=== PATIENT | male | born 1945 | race Caucasian/White ===

== ENCOUNTER 2019-02-25 11:44 | Emergency (ER) | payer MEDICARE, OTHER ==
[2019-02-25] MEDS ORDERED: Albuterol/Ipratropium 3.0-0.5 MG/3 ML Neb Soln ONE (11:49)
[2019-02-25] MEDS ORDERED: Albuterol/Ipratropium 3.0-0.5 MG/3 ML Neb Soln NEB ONE (11:55)
--- NOTE | 2019-02-25 12:06 | EDM.PDOC ---
ED HPI GENERAL MEDICAL PROBLEM - General Chief Complaint: Respiratory Problem Stated Complaint: SOB Time Seen by Provider: 02/25/19 11:45 Source of Information: Reports: Patient History Limitations: Reports: No Limitations - History of Present Illness INITIAL COMMENTS - FREE TEXT/NARRATIVE: Patient presented to the ED because of dyspnea. He was recently diagnosed with pneumonia and is taking doxycycline but still he is cough which is non- productive and with associated dyspnea. there is no fever or chills. - Related Data Allergies Allergy/AdvReac Type Severity Reaction Status Date / Time cefazolin Allergy Rash Verified 07/22/13 13:57 ciprofloxacin Allergy Nausea and Verified 07/22/13 13:57 Vomiting Home Meds: Home Meds Hydrochlorothiazide/Lisinopril [Lisinopril/HCTZ 20-12.5 MG] 20 mg PO DAILY 07/22 [History] Lutein/Minerals/Vit A,C & E [Ocuvite] 1 tab PO DAILY 07/22/13 [History] Aspirin 325 mg PO DAILY 03/04/16 [History] Metoprolol Tartrate [Lopressor] 25 mg PO BID 03/04/16 [History] Vitamin B Comp W-C/FA/Zinc [Morenita B Strong with C & Zinc Tb] 1 each PO DAILY [History] Zolpidem Tartrate [Ambien] 10 mg PO BEDTIME PRN 03/04/16 [History] atorvaSTATin [Lipitor] 20 mg PO DAILY 03/04/16 [History] Aspirin [Ecotrin EC] 81 mg PO DAILY 03/05/16 [History] Albuterol Sulfate [Albuterol Sulfate Hfa] 8.5 gm IH QID PRN #1 hfa.aer.ad [Rx] predniSONE [Prednisone] 40 mg PO DAILY #6 tablet 02/25/19 [Rx] Past Medical History HEENT History: Reports: Glaucoma Other HEENT History: Wears glasses, astigmatism, myopia, presbyopia, VITREOUS DEGENERATION,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, CATARACT, NUCLEAR SCLEROTIC, BOTH EYES Cardiovascular History: Reports: Hypertension Other Cardiovascular History: GENERALIZED ATHEROSCLEROSIS,STEMI INVOLVING RIGHT CORONARY ARTERY, CAD Gastrointestinal History: Reports: Helicobacter Pylori 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 Denies: Sputum Cardiovascular: Reports: No Symptoms Endocrine: Reports: No Symptoms GI/Abdominal: Reports: No Symptoms : Reports: No Symptoms Musculoskeletal: Reports: No Symptoms Skin: Reports: No Symptoms Neurological: Reports: No Symptoms Psychiatric: Reports: No Symptoms ED EXAM, GENERAL - Physical Exam Exam: See Below Exam Limited By: No Limitations General Appearance: Alert, No Apparent Distress Eye Exam: Bilateral Eye: PERRL Ears: Normal External Exam, Normal Canal, Normal TMs Nose: Normal Inspection, Normal Mucosa, No Blood Throat/Mouth: Normal Inspection, Normal Lips, Normal Teeth, Normal Gums, Normal Oropharynx, Normal Voice, No Airway Compromise Head: Atraumatic, Normocephalic Neck: Normal Inspection, Supple, Non-Tender, Full Range of Motion Respiratory/Chest: No Respiratory Distress, Lungs Clear, Normal Breath Sounds, No Accessory Muscle Use, Chest Non-Tender, Rhonchi, Wheezing Cardiovascular: Normal Peripheral Pulses, Regular Rate, Rhythm, No Edema, No Gallop, No JVD, No Murmur, No Rub GI/Abdominal: Normal Bowel Sounds, Soft, No Organomegaly, No Distention, No Abnormal Bruit, No Mass Back Exam: Normal Inspection, Full Range of Motion Course - Vital Signs Text/Narrative:: There's is residual bronchospasm from his pneumonia and responded well with duoneb and prednisone 40 mg po x1. He was also noted to have hypertensive crisis with BP 202/109,although he denies any chest,dizziness. He was given norvasc 10 mg and his BP did go down to 179/89 upon discharge. Last Recorded V/S: Last Vital Signs Temp Pulse Resp BP 202/85 H 02/25/19 12:18 Pulse Ox - Orders/Labs/Meds Orders: Active Orders 24 hr Category Date Time Status RT Aerosol Therapy [RC] ASDIRECTED Care 02/25/19 11:55 Active Meds: Medications Discontinued Medications Generic Name Dose Route Start Last Admin Trade Name Freq PRN Reason Stop Dose Admin Albuterol/Ipratropium Confirm 02/25/19 11:49 02/25/19 11:57 Duoneb 3.0-0.5 Mg/3 Ml Administered 02/25/19 11:50 Not Given Dose 3 ml .ROUTE .STK-MED ONE Albuterol/Ipratropium 3 ml 02/25/19 11:55 02/25/19 11:55 Duoneb 3.0-0.5 Mg/3 Ml NEB 02/25/19 11:56 3 ml ONETIME ONE Administration Amlodipine Besylate 10 mg 02/25/19 12:14 02/25/19 12:18 Norvasc PO 02/25/19 12:15 10 mg ONETIME ONE Administration Departure - Departure Time of Disposition: 12:00 Disposition: Refer to Observation Condition: Good Clinical Impression: Pneumonia - Discharge Information Prescriptions: Albuterol Sulfate [Albuterol Sulfate Hfa] 8.5 gm IH QID PRN #1 hfa.aer.ad PRN Reason: Dyspnea predniSONE [Prednisone] 40 mg PO DAILY #6 tablet Instructions: Hypertension, [id number], Community-Acquired Pneumonia, Adult, [id number] Referrals: Levon Gao MD [Primary Care Provider] - Forms: ED Department Discharge Additional Instructions: increase oral fluids continue your antibiotic albuterol MDI 2 puffs every 4-6 hours as needed for shortness of breath prednisone 40mg daily foe 3 days starting today follow up with your doctor regarding your elevated BP, he might add a different medication Sepsis Event Note - Focused Exam Vital Signs: Vital Signs BP 02/25/19 12:18 202/85 H Date Exam was Performed: 02/25/19 Time Exam was Performed: 14:18 - My Orders Last 24 Hours: My Active Orders 02/25/19 11:55 RT Aerosol Therapy [RC] ASDIRECTED - Assessment/Plan Last 24 Hours: My Active Orders 02/25/19 11:55 RT Aerosol Therapy [RC] ASDIRECTED
[2019-02-25] MEDS ORDERED: amLODIPine 10 MG Tab PO ONE (12:14)
[2019-02-25 15:24] VITALS: PULSE 72
[2019-02-25 15:25] VITALS: BP 179/83
== END 2019-02-25 13:20 | disposition admitted as inpatient to this hospital (09) ==
LOC: FB.ED 11:44
DX: J18.9 Pneumonia, unspecified organism (principal); I10 Essential (primary) hypertension; I25.10 Atherosclerotic heart disease of native coronary artery without angina pectoris; Z88.1 Allergy status to other antibiotic agents; Z79.82 Long term (current) use of aspirin; Z79.899 Other long term (current) drug therapy
CPT/HCPCS: 94640; 99284; A9270; J7620-GY

== ENCOUNTER 2019-03-01 01:41 | Emergency (ER) | payer MEDICARE, OTHER ==
[2019-03-01] MEDS: Sodium Chloride 0.9% 10 ML Syringe FLUSH PRN ×2 (02:00→03:32)
[2019-03-01] MEDS ORDERED: Albuterol/Ipratropium 3.0-0.5 MG/3 ML Neb Soln NEB ONE (02:01)
--- NOTE | 2019-03-01 03:19 | EDM.PDOC ---
ED HPI GENERAL MEDICAL PROBLEM - General Chief Complaint: Respiratory Problem Stated Complaint: SOB Time Seen by Provider: 03/01/19 02:10 Source of Information: Reports: Patient History Limitations: Reports: No Limitations - History of Present Illness INITIAL COMMENTS - FREE TEXT/NARRATIVE: pt c/o cough and constant urge to clear his throat , at times its hard to breath , tells me it started 3 weeks ago, was prescribed zpack but this caused him rash , then was prescribed doxycycline and prednisone, felt he got better for few days but sx came back, pt denies fever chills, chest pain GERD sx or any other associated sx or concerns. he has a long Hx of smoking and quit about 7 years ago. also Hx of chronic rhinitis. - Related Data Allergies Allergy/AdvReac Type Severity Reaction Status Date / Time azithromycin Allergy Other Verified 03/01/19 01:58 cefazolin Allergy Rash Verified 03/01/19 01:58 ciprofloxacin Allergy Nausea and Verified 03/01/19 01:58 Vomiting Home Meds: Home Meds Aspirin 325 mg PO DAILY 03/04/16 [History] Metoprolol Tartrate [Lopressor] 50 mg PO BID 03/04/16 [History] atorvaSTATin [Lipitor] 20 mg PO DAILY 03/04/16 [History] Albuterol Sulfate [Albuterol Sulfate Hfa] 8.5 gm IH QID PRN #1 hfa.aer.ad [Rx] lisinopriL [Lisinopril] 20 mg PO DAILY 02/25/19 [History] Albuterol Sulfate [Albuterol Sulfate Hfa] 2 puff ASDIRECTED PRN 03/01/19 [ History] Doxycycline [Doxycycline Hyclate] 100 mg PO BID 03/01/19 [History] Past Medical History HEENT History: Reports: Glaucoma Other HEENT History: Wears glasses, astigmatism, myopia, presbyopia, VITREOUS DEGENERATION,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 Gastrointestinal History: Reports: Helicobacter Pylori Genitourinary History: Reports: Renal Calculus Other Genitourinary History: Bladder cancer. Kidney stones with lithotripsy. 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 Malignant neoplasm of bladder. Dysuria. 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 Oncologic Surgical History: Reports: Other (See Below) Other Oncologic Surgeries/Procedures: Malignant neoplasm of ureter. Malignant neoplasm of bladder. Dysuria. Left kidney and ureter gone. Part of right ureter gone Social & Family History - Family History Family Medical History: Noncontributory - Tobacco Use Smoking Status *Q: Former Smoker Years of Tobacco use: 40 Used Tobacco, but Quit: Yes Month/Year Tobacco Last Used: 2012 - Caffeine Use Caffeine Use: Reports: Coffee - Recreational Drug Use Recreational Drug Use: No ED ROS GENERAL - Review of Systems Review Of Systems: See Below Constitutional: Reports: No Symptoms HEENT: Reports: No Symptoms Respiratory: Reports: Wheezing, Cough, Sputum Cardiovascular: Reports: No Symptoms GI/Abdominal: Reports: No Symptoms Musculoskeletal: Reports: No Symptoms Skin: Reports: No Symptoms ED EXAM, GENERAL - Physical Exam Exam: See Below Exam Limited By: No Limitations General Appearance: Alert, No Apparent Distress Nose: Normal Inspection Throat/Mouth: Normal Inspection, Normal Oropharynx, Normal Voice Head: Atraumatic. No: Sinus Tenderness Neck: Normal Inspection, Supple, Non-Tender Respiratory/Chest: No Respiratory Distress, Rhonchi, Wheezing Cardiovascular: Normal Peripheral Pulses GI/Abdominal: Normal Bowel Sounds, Soft, Non-Tender Back Exam: Normal Inspection Neurological: Alert, Oriented, CN II-XII Intact, No Motor/Sensory Deficits Skin Exam: Warm, Dry Course - Vital Signs Text/Narrative:: cxr looked clear , labs unremarkable no signs of CHF, pt has recurrent bronchitis. was prescribed Levaquin , given solumedrol here and rx on prednisone for 5 days. pt to use own inhaler if needed as directed. BP noted to be elevated here SBP in the 160s, and pt was advised to follow with his PCP in few days for re-check. Last Recorded V/S: Last Vital Signs Temp 36.4 C 03/01/19 01:41 Pulse 81 03/01/19 02:50 Resp 19 03/01/19 02:50 BP 135/75 03/01/19 02:50 Pulse Ox 97 03/01/19 02:50 - Orders/Labs/Meds Orders: Active Orders 24 hr Category Date Time Status EKG Documentation Completion [RC] STAT Care 03/01/19 01:59 Active RT Aerosol Therapy [RC] ASDIRECTED Care 03/01/19 02:02 Active Chest 2V [CR] Stat Exams 03/01/19 02:00 Taken Sodium Chloride 0.9% [Saline Flush] Med 03/01/19 02:28 Active 10 ml FLUSH ASDIRECTED PRN Peripheral IV Insertion Adult [OM.PC] Routine Oth 03/01/19 02:28 Ordered Medication Orders Sodium Chloride (Saline Flush) 10 ml FLUSH ASDIRECTED PRN PRN Reason: Keep Vein Open Last Admin: 03/01/19 02:00 Dose: 10 ml Labs: Laboratory Tests 03/01/19 03/01/19 03/01/19 Range/Units 01:50 01:50 01:50 WBC 16.1 H (4.5-12.0) X10-3/uL RBC 4.94 (4.30-5.75) x10(6)uL Hgb 16.6 (13.5-17.8) g/dL Hct 45.8 (30.0-51.3) % MCV 92.8 (80-96) fL MCH 33.6 (27.7-33.6) pg MCHC 36.2 H (32.2-35.4) g/dL RDW 13.1 (11.5-15.5) % Plt Count 190 (125-369) X10(3)uL MPV 8.1 (7.4-10.4) fL Add Manual Diff Yes Neutrophils % (Manual) 87 H (46-82) % Band Neutrophils % 1 (0-6) % Lymphocytes % (Manual) 7 L (13-37) % Monocytes % (Manual) 5 (4-12) % Sodium 139 (135-145) mmol/L Potassium 4.3 (3.5-5.3) mmol/L Chloride 103 (100-110) mmol/L Carbon Dioxide 23 (21-32) mmol/L BUN 23 H (7-18) mg/dL Creatinine 1.3 (0.70-1.30) mg/dL Est Cr Clr Drug Dosing 57.21 mL/min Estimated GFR (MDRD) 54 L (>60) BUN/Creatinine Ratio 17.7 (9-20) Glucose 126 H (80-116) mg/dL Calcium 9.0 (8.6-10.2) mg/dL Total Bilirubin 0.8 (0.1-1.3) mg/dL AST 27 H (5-25) IU/L ALT 52 H (12-36) U/L Alkaline Phosphatase 75 (56-112) IU/L Troponin I < 0.017 L (<0.017-0.056) ng/mL NT-Pro-B Natriuret Pep 109 (<=125) pg/mL Total Protein 7.4 (6.0-8.0) g/dL Albumin 4.0 (3.2-4.6) g/dL Globulin 3.4 g/dL Albumin/Globulin Ratio 1.2 Meds: Medications Generic Name Dose Route Start Last Admin Trade Name Freq PRN Reason Stop Dose Admin Sodium Chloride 10 ml 03/01/19 02:28 03/01/19 02:00 Saline Flush FLUSH 10 ml ASDIRECTED PRN Administration Keep Vein Open Discontinued Medications Generic Name Dose Route Start Last Admin Trade Name Freq PRN Reason Stop Dose Admin Albuterol/Ipratropium 3 ml 03/01/19 02:01 03/01/19 02:25 Duoneb 3.0-0.5 Mg/3 Ml NEB 03/01/19 02:02 3 ml ONETIME ONE Administration Departure - Departure Time of Disposition: 03:22 Disposition: Home, Self-Care 01 Clinical Impression: Acute bronchitis - Discharge Information Referrals: PCP,None [Primary Care Provider] - Sepsis Event Note - Evaluation Sepsis Screening Result: Possible Sepsis Risk - Focused Exam Vital Signs: Vital Signs Temp Pulse Resp BP Pulse Ox 03/01/19 02:50 81 19 135/75 97 03/01/19 02:45 80 19 150/72 H 93 L 03/01/19 02:15 83 20 165/82 H 94 L 03/01/19 02:00 84 18 166/82 H 93 L 03/01/19 01:45 84 21 H 156/85 H 94 L 03/01/19 01:41 36.4 C 94 24 H 190/80 H 95 Date Exam was Performed: 03/01/19 Time Exam was Performed: 03:14 - My Orders Last 24 Hours: My Active Orders 03/01/19 01:59 EKG Documentation Completion [RC] STAT 03/01/19 02:00 Chest 2V [CR] Stat 03/01/19 02:02 RT Aerosol Therapy [RC] ASDIRECTED 03/01/19 02:28 Sodium Chloride 0.9% [Saline Flush] 10 ml FLUSH ASDIRECTED PRN Peripheral IV Insertion Adult [OM.PC] Routine - Assessment/Plan Last 24 Hours: My Active Orders 03/01/19 01:59 EKG Documentation Completion [RC] STAT 03/01/19 02:00 Chest 2V [CR] Stat 03/01/19 02:02 RT Aerosol Therapy [RC] ASDIRECTED 03/01/19 02:28 Sodium Chloride 0.9% [Saline Flush] 10 ml FLUSH ASDIRECTED PRN Peripheral IV Insertion Adult [OM.PC] Routine
[2019-03-01] MEDS ORDERED: methylPREDNISolone Sodium Succinate 125 MG/2 ML SDV IM ONE (03:22)
[2019-03-01] MEDS ORDERED: Levofloxacin 500 MG Tab PO ONE (03:29)
[2019-03-01] MEDS ORDERED: methylPREDNISolone Sodium Succinate 125 MG/2 ML SDV IVPUSH ONE (03:48)
[2019-03-01 04:39] VITALS: BP 146/70; PULSE 78
--- NOTE | 2019-03-01 10:57 | CR ---
INDICATION: Short of breath. Smoker x40 years. Quit 7 years prior. Two packs per day. CHEST, 2 VIEWS: Two PA views and two lateral views of the chest were obtained 03/01/19 and compared with 12/26/17 CT of the chest, again revealing a mild dextroconvex scoliosis of the lower middle thoracic spine with [id number] hypertrophic degenerative changes in that area. The heart appeared normal in size and shape. Post median sternotomy changes is noted as previously. Pulmonary markings overall appear similar to the previous study without a consolidating pneumonia or effusion identified. Overlying EKG leads are noted. Slightly heavy markings are again noted at the right lower lung field - right lung base, likely fibrotic in nature, making it difficult to exclude minimal patchy bronchopneumonia. IMPRESSION: No definite acute process but difficult to exclude minimal patchy bronchopneumonia at the right lower lung field - lung base. MTDD
== END 2019-03-01 03:58 | disposition home or self-care (01) ==
LOC: FB.ED 01:41
DX: J20.9 Acute bronchitis, unspecified (principal); I10 Essential (primary) hypertension; I25.10 Atherosclerotic heart disease of native coronary artery without angina pectoris; Z95.1 Presence of aortocoronary bypass graft; Z79.899 Other long term (current) drug therapy; Z88.1 Allergy status to other antibiotic agents; Z79.82 Long term (current) use of aspirin; Z87.891 Personal history of nicotine dependence
CPT/HCPCS: 36415; 71046; 80053; 83880; 84484; 85025; 87804; 87804-59; 93005; 94640; 96374; 99284; 99285-25; A9270-GY; J2930; J7620-GY

== ENCOUNTER 2020-07-29 19:06 | Emergency (ER) | payer MEDICARE, OTHER ==
[2020-07-29] MEDS ORDERED: Sodium Chloride 0.9% 10 ML Syringe FLUSH PRN (19:16)
--- NOTE | 2020-07-29 19:16 | EDM.PDOC ---
ED HPI GENERAL MEDICAL PROBLEM - General Stated Complaint: CHEST PAIN Time Seen by Provider: 07/29/20 19:10 Source of Information: Reports: Patient History Limitations: Reports: No Limitations - History of Present Illness INITIAL COMMENTS - FREE TEXT/NARRATIVE: 75-year-old male who reports that last night as he was getting ready for bed, he put his drops in both of his eyes for his glaucoma and shortly after this while resting he developed some pressure in the center of his chest lasted for "about a minute" and then went away. He also felt somewhat short of breath. He reports that when he set up the pain and the shortness of breath seemed to go away but he took his blood pressure and it was 185/101 he was feeling somewhat lightheaded at the time and seemed to get better over the next 2 hours and his blood pressures sequentially dropped and then was back to what he normally runs which is 128/74. He was fine following this for the rest of the evening and slept well for him and was fine all through the day today (his daughter reports that he was at her house at 3 PM and he was normal to her) until approximately 6 PM when he began to feel cold all over and he thought that the air conditioner was just up to much and he adjusted down but he was still feeling cold all over and was somewhat shaky all over. He was not sweating at the time. He had no chest pain at this time he had no shortness of breath at this time he did take his blood pressure and it was 99 systolic and he took it several more times after this and it just seemed to arise further. This, plus him feeling generally unwell all over with the feeling cold and shaky and malaise, caused him to call the ambulance and he presents to the emergency department via ambulance. He continues to state that he has no chest pain or shortness of breath and in fact he tells me he has no pain anywhere. He would rated pain as a 0/10. The shakiness and feeling cold has also resolved. No nausea or vomiting. No dysuria or hematuria. No cough or sore throat. He has had chronic rhinitis and was recently told that he had sinusitis. This has been ongoing for about the past 5- 6 years and about 1 week ago he was placed on Flonase he has been using that. He also tells me that for the past week he has been having intermittent episodes of discomfort in his abdomen "my gut is turning over" after he eats and this is usually in the evening. He somehow thinks it may be related to the Flonase that he is using as he did not use it yesterday or today and he did not have any of those symptoms today with his abdomen. He also tells me that he has been feeling course for the past he weeks. He also reports that he has a history of reflux and was on reflux medication but stopped it 2-3 years ago because he didn't feel that he needed any more. Now, he states he feels pretty much back to normal. He does not feel any lightheadedness or weakness or dizziness area and there is no pain. There is no shortness of breath. There are no other associated signs or symptoms. There are no other modifying factors. Onset: Other (Last night as above) Duration: Intermittent, Other (Resolving/resolved now.) Location: Reports: Other (No pain today and only transient discomfort in his chest last night.) Quality: Reports: Pressure (Chest for all of 1 minute.) Improves with: Reports: None Worsens with: Reports: None Context: Reports: Other (As above) Associated Symptoms: Reports: No Other Symptoms (Except as above.) Treatments FOOD EDITOR: Reports: Other (see below) (Nothing.) - Related Data Allergies Allergy/AdvReac Type Severity Reaction Status Date / Time azithromycin Allergy Other Verified 03/01/19 01:58 cefazolin Allergy Rash Verified 03/01/19 01:58 ciprofloxacin Allergy Nausea and Verified 03/01/19 01:58 Vomiting Home Meds: Home Meds Aspirin 325 mg PO DAILY 03/04/16 [History] Metoprolol Tartrate [Lopressor] 50 mg PO BID 03/04/16 [History] atorvaSTATin [Lipitor] 20 mg PO DAILY 03/04/16 [History] Albuterol Sulfate [Albuterol Sulfate Hfa] 8.5 gm IH QID PRN #1 [id number] 02/25/19 [Rx] lisinopriL [Lisinopril] 20 mg PO DAILY 02/25/19 [History] Albuterol Sulfate [Albuterol Sulfate Hfa] 2 puff ASDIRECTED PRN 03/01/19 [History] Fluticasone Propionate [Flonase] 1 each NASBOTH BID 07/29/20 [History] Ipratropium [Atrovent 0.06% Nasal [place]] 1 each NASBOTH BID 07/29/20 [History] Latanoprost/Pf [Latanoprost 0.005% Eye Drop] 2 drop EYEBOTH BEDTIME 07/29/20 [History] Mirtazapine 15 mg PO BEDTIME 07/29/20 [History] Zolpidem Tartrate [Ambien] 5 mg PO BEDTIME 07/29/20 [History] Past Medical History HEENT History: Reports: Glaucoma Other HEENT History: Wears glasses, astigmatism, myopia, presbyopia, VITREOUS DEGENERATION,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 Gastrointestinal History: Reports: GERD, Helicobacter Pylori Genitourinary History: Reports: Renal Calculus Other Genitourinary History: Bladder cancer. Kidney stones with lithotripsy. 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 Malignant neoplasm of bladder. Dysuria. 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 Oncologic Surgical History: Reports: Other (See Below) Other Oncologic Surgeries/Procedures: Malignant neoplasm of ureter. Malignant neoplasm of bladder. Dysuria. Left kidney and ureter gone. Part of right ureter gone Social & Family History - Tobacco Use Tobacco Use Status *Q: Unknown Ever Used Tobacco (Nonsmoker.) - Caffeine Use Caffeine Use: Reports: Coffee - Alcohol Use Alcohol Use History: No - Living Situation & Occupation Occupation: Retired ED ROS GENERAL - Review of Systems Review Of Systems: See Below Constitutional: Reports: Chills, Weakness HEENT: Reports: Other (Hoarse voice for the past few weeks.). Denies: Hearing Loss, Throat Pain Respiratory: Reports: Shortness of Breath (Transiently last night). Denies: Cough, Hemoptysis Cardiovascular: Reports: Chest Pain (Transiently last night. None since then.), Lightheadedness Endocrine: Reports: Fatigue. Denies: Polydypsia, Polyuria GI/Abdominal: Denies: Nausea, Vomiting : Denies: Dysuria, Hematuria Skin: Denies: Diaphoresis, Pruritis Neurological: Reports: Dizziness. Denies: Headache Hematologic/Lymphatic: Denies: Easy Bleeding, Easy Bruising ED EXAM, GENERAL - Physical Exam Exam: See Below Exam Limited By: No Limitations General Appearance: Alert, WD/WN, No Apparent Distress Eye Exam: Bilateral Eye: EOMI, Normal Inspection (Sclera are anicteric) Ears: Normal External Exam, Hearing Grossly Normal Ear Exam: Bilateral Ear: Auricle Normal Nose: Normal Inspection, Normal Mucosa, No Blood Throat/Mouth: Normal Lips, Normal Voice, No Airway Compromise Head: Atraumatic, Normocephalic Neck: Normal Inspection, Supple, Non-Tender, Full Range of Motion Respiratory/Chest: No Respiratory Distress, Lungs Clear, Normal Breath Sounds, No Accessory Muscle Use, Chest Non-Tender Cardiovascular: Normal Peripheral Pulses, Regular Rate, Rhythm, No Gallop, No Murmur Peripheral Pulses: 0: Radial (L) (Patient had this harvested for his CABG.), 2+: Radial (R), Dorsalis Pedis (L), Dorsalis Pedis (R) GI/Abdominal: Normal Bowel Sounds, Soft, Non-Tender, No Mass Back Exam: Normal Inspection, Full Range of Motion Extremities: Normal Inspection, Normal Range of Motion, Non-Tender, No Pedal Edema, Normal Capillary Refill Neurological: Alert, Oriented, CN II-XII Intact, Normal Cognition, No Motor/Sensory Deficits Psychiatric: Normal Affect Skin Exam: Warm, Dry, Intact, Normal Color, No Rash #1 Interpretation EKG Date: 07/29/20 Time: 19:06 Rhythm: NSR Rate (Beats/Min): 87 [place]: Normal P-Wave: Enlarged (Left atrial enlargement) QRS: RBBB ST-T: Normal QT: Prolonged (Prolonged QTc.) Comparison: No Change (No change from an EKG performed on 03/01/2019.) #2 Interpretation EKG Date: 07/29/20 Time: 22:04 Rhythm: NSR Rate (Beats/Min): 61 [place]: Normal P-Wave: Enlarged (Left atrial enlargement) QRS: RBBB ST-T: Normal QT: Normal Comparison: No Change (No significant change from EKG performed at 7:06 PM today 07/29/2020) Course - Vital Signs Last Recorded V/S: Last Vital Signs Temp 37.6 C 07/29/20 19:31 Pulse 69 07/29/20 21:58 Resp 18 07/29/20 19:31 BP 200/82 H 07/29/20 21:58 Pulse Ox 98 07/29/20 19:31 - Orders/Labs/Meds Orders: Active Orders 24 hr Category Date Time Status Chest 1V Frontal [CR] Stat Exams 07/29/20 19:16 Taken Peripheral IV Insertion Adult [OM.PC] Routine Oth 07/29/20 19:16 Ordered EKG 12 Lead [EK] Routine Ther 07/29/20 19:16 Ordered EKG 12 Lead [EK] Routine Ther 07/29/20 22:15 Ordered Labs: Laboratory Tests 07/29/20 07/29/20 07/29/20 Range/Units 19:45 19:45 19:45 WBC 8.5 (3.2-10.1) x10-3/uL RBC 5.00 (3.90-5.90) x10(6)uL Hgb 15.3 (12.9-17.7) g/dL Hct 43.4 (38.3-50.1) % MCV 86.8 (80.8-98.7) fL MCH 30.5 (27.0-33.3) pg MCHC 35.2 (28.7-35.3) g/dL RDW 14.0 (12.4-15.0) % Plt Count 156 (117-477) x10(3)uL MPV 7.6 (6.7-11.0) fL Neut % (Auto) 76.6 H (40.3-71.8) % Lymph % (Auto) 14.6 L (15.8-45.3) % [place] % (Auto) 7.5 (5.5-15.2) % Eos % (Auto) 0.8 (0.1-6.8) % Baso % (Auto) 0.5 (0.3-3.8) % Neut # (Auto) 6.5 (1.7-6.9) x10-3/uL Lymph # (Auto) 1.2 (0.5-4.5) x10-3/uL Barren # (Auto) 0.6 (0.0-1.2) x10-3/uL Eos # (Auto) 0.1 (0.0-0.6) x10-3/uL Baso # (Auto) 0.0 (0.0-0.3) x10-3/uL D-Dimer, Quantitative (0.0-0.59) mg/LFEU Sodium 141 (135-145) mmol/L Potassium 3.9 (3.5-5.3) mmol/L Chloride 105 (100-110) mmol/L Carbon Dioxide 26 (21-32) mmol/L BUN 17 (7-18) mg/dL Creatinine 1.5 H (0.70-1.30) mg/dL Est Cr Clr Drug Dosing TNP Estimated GFR (MDRD) 46 L (>60) BUN/Creatinine Ratio 11.3 (9-20) Glucose 116 (80-116) mg/dL Calcium 7.9 L (8.6-10.2) mg/dL Magnesium 1.8 (1.8-2.5) mg/dL Total Bilirubin 0.7 (0.1-1.3) mg/dL AST 30 H D (5-25) IU/L ALT 65 H D (12-36) U/L Alkaline Phosphatase 71 (56-112) IU/L Troponin I 8.5 (4.0-60.3) pg/mL Total Protein 6.8 (6.0-8.0) g/dL Albumin 3.8 (3.2-4.6) g/dL Globulin 3.0 g/dL Albumin/Globulin Ratio 1.3 Urine Color (YELLOW) Urine Appearance (CLEAR) Urine pH (5.0-6.5) Ur Specific [place] (1.010-1.025) Urine Protein (NEGATIVE) mg/dL Urine Glucose (UA) (NORMAL) mg/dL Urine Ketones (NEGATIVE) mg/dL Urine Occult Blood (NEGATIVE) Urine Nitrite (NEGATIVE) Urine Bilirubin (NEGATIVE) Urine Urobilinogen (NEGATIVE) mg/dL Ur Leukocyte Esterase (NEGATIVE) Urine RBC (0-5) Urine WBC (0-5) Ur Squamous Epith Cells (NS,R,O) Urine Bacteria (NS) 07/29/20 07/29/20 07/29/20 Range/Units 19:45 22:25 22:44 WBC (3.2-10.1) x10-3/uL RBC (3.90-5.90) x10(6)uL Hgb (12.9-17.7) g/dL Hct (38.3-50.1) % MCV (80.8-98.7) fL MCH (27.0-33.3) pg MCHC (28.7-35.3) g/dL RDW (12.4-15.0) % Plt Count (117-477) x10(3)uL MPV (6.7-11.0) fL Neut % (Auto) (40.3-71.8) % Lymph % (Auto) (15.8-45.3) % [place] % (Auto) (5.5-15.2) % Eos % (Auto) (0.1-6.8) % Baso % (Auto) (0.3-3.8) % Neut # (Auto) (1.7-6.9) x10-3/uL Lymph # (Auto) (0.5-4.5) x10-3/uL [place] # (Auto) (0.0-1.2) x10-3/uL Eos # (Auto) (0.0-0.6) x10-3/uL Baso # (Auto) (0.0-0.3) x10-3/uL D-Dimer, Quantitative 0.48 (0.0-0.59) mg/LFEU Sodium (135-145) mmol/L Potassium (3.5-5.3) mmol/L Chloride (100-110) mmol/L Carbon Dioxide (21-32) mmol/L BUN (7-18) mg/dL Creatinine (0.70-1.30) mg/dL Est Cr Clr Drug Dosing Estimated GFR (MDRD) (>60) BUN/Creatinine Ratio (9-20) Glucose (80-116) mg/dL Calcium (8.6-10.2) mg/dL Magnesium (1.8-2.5) mg/dL Total Bilirubin (0.1-1.3) mg/dL AST (5-25) IU/L ALT (12-36) U/L Alkaline Phosphatase (56-112) IU/L Troponin I 16.6 (4.0-60.3) pg/mL Total Protein (6.0-8.0) g/dL Albumin (3.2-4.6) g/dL Globulin g/dL Albumin/Globulin Ratio Urine Color Yellow (YELLOW) Urine Appearance Clear (CLEAR) Urine pH 5.0 (5.0-6.5) Ur Specific [place] 1.010 (1.010-1.025) Urine Protein Negative (NEGATIVE) mg/dL Urine Glucose (UA) Normal (NORMAL) mg/dL Urine Ketones Negative (NEGATIVE) mg/dL Urine Occult Blood Negative (NEGATIVE) Urine Nitrite Negative (NEGATIVE) Urine Bilirubin Negative (NEGATIVE) Urine Urobilinogen Normal (NEGATIVE) mg/dL Ur Leukocyte Esterase Negative (NEGATIVE) Urine RBC 0-5 (0-5) Urine WBC 0-5 (0-5) Ur Squamous Epith Cells Rare (NS,R,O) Urine Bacteria Few H (NS) Meds: Medications Discontinued Medications Generic Name Dose Route Start Last Admin Trade Name Freq PRN Reason Stop Dose Admin Metoprolol Tartrate 50 mg 07/29/20 21:41 07/29/20 21:58 Metoprolol Tartrate 50 Mg Tab PO 07/29/20 21:42 50 mg ONETIME ONE Administration Sodium Chloride 10 ml 07/29/20 19:16 Sodium Chloride 0.9% 10 Ml Syringe FLUSH ASDIRECTED PRN Keep Vein Open - Radiology Interpretation Free Text/Narrative:: Portable chest x-ray shows no acute disease. - Re-Assessments/Exams Free Text/Narrative Re-Assessment/Exam: 07/29/20 21:30: All of the patient's blood tests were reassuringly normal except for some mildly elevated LFTs.. His troponin and his d-dimer were both normal. He has yet to provide us with a urine. His EKG showed no change from a previous EKG and specifically there was no acute current of injury or ischemia present. His chest x-ray was normal. The patient's blood pressure is still somewhat elevated at the 180-190 systolic range. He has not had his nighttime dose of metoprolol. Will give him his nighttime dose of metoprolol now. He feels pretty much back to normal at this point. I have discussed various options with the patient. One option would be to repeat his troponin in about 45 minutes to an hour and also repeat his EKG and if these are normal, it is unlikely that he has had any heart-related problem or heart attack. He would be able to go home at this point. Another option, would be to be admitted to the hospital and do serial cardiac enzymes and watch him overnight on the monitor technician. If we were to do this, I would have to transfer the patient to another facility because I have been told that we do not have any further beds available for admission at [facility] [place] at this time. Patient would like to think about this for now. We will continue to try to get a urine specimen and I will repeat his troponin and his EKG at 10:15 PM. 07/29/20 23:05: The patient's repeat blood pressure was 163/84, so improved. The patient's repeat EKG is unchanged from previous. The repeat troponin was still normal. The urinalysis was normal. I rediscussed the 2 options and the patient states that he would like to go home at this point and he will follow-up with his primary provider. With the mildly elevated LFTs, I think it is possible that he has some type of biliary problem. He certainly needs to follow-up with his primary provider about that as well. Precautions and reasons for return to the emergency department were discussed with the patient and with his family members while he was in the emergency department and were detailed in the patient's discharge instructions. Departure - Departure Time of Disposition: 23:15 Disposition: Home, Self-Care 01 Condition: Good (Improved) Clinical Impression: Hypertension, uncontrolled, Elevated LFTs, Lightheadedness Instructions: Hypertension, Adult, [id number] Referrals: PCP,None [Primary Care Provider] - Forms: ED Department Discharge Additional Instructions: Your blood tests were all reassuringly normal except for some mildly elevated liver associated test. Your heart enzyme test was normal both times it we checked it and your EKG was unchanged from previous both times that we checked that as well. I am unsure why you had the episode last night and again tonight your blood pressure being elevated. You do need to follow-up with Dr. Gao this coming week. You will need to have additional testing to check these elevated li rene function test. You may also need other tests to check your heart out more fully and to adjust your blood pressure medications. Back to the emergency department for chest pain, back/shoulder/neck pains, shortness of breath, weakness, severe headache or any other concerning signs or symptoms. Sepsis Event Note (ED) - Focused Exam Vital Signs: Vital Signs Temp Pulse Pulse Resp BP BP Pulse Ox 07/29/20 21:58 69 200/82 H 07/29/20 19:31 37.6 C 93 18 216/94 H 98 - My Orders Last 24 Hours: My Active Orders 07/29/20 19:16 Chest 1V Frontal [CR] Stat Peripheral IV Insertion Adult [OM.PC] Routine EKG 12 Lead [EK] Routine 07/29/20 22:15 EKG 12 Lead [EK] Routine - Assessment/Plan Last 24 Hours: My Active Orders 07/29/20 19:16 Chest 1V Frontal [CR] Stat Peripheral IV Insertion Adult [OM.PC] Routine EKG 12 Lead [EK] Routine 07/29/20 22:15 EKG 12 Lead [EK] Routine
[2020-07-29] MEDS ORDERED: Metoprolol Tartrate 50 MG Tab PO ONE (21:41)
[2020-07-29 21:59] VITALS: BP 200/82; PULSE 69
--- NOTE | 2020-07-31 10:56 | CR ---
INDICATION: Lightheaded, cold, slightly shaking, high blood pressure. CHEST ONE VIEW: Two AP portable upright views of the chest were obtained 07/29/20 and compared with 03/01/19. The heart did not appear enlarged with post median sternotomy change again seen. Overlying EKG leads are noted. No definite active infiltrate or effusion was identified with markings similar to the previous examination. IMPRESSION: No acute process. MTDD
== END 2020-07-29 23:25 | disposition home or self-care (01) ==
LOC: FB.ED 19:06
DX: R42 Dizziness and giddiness (principal); I10 Essential (primary) hypertension; R79.89 Other specified abnormal findings of blood chemistry; I25.10 Atherosclerotic heart disease of native coronary artery without angina pectoris; E78.00 Pure hypercholesterolemia, unspecified; I25.2 Old myocardial infarction; Z95.1 Presence of aortocoronary bypass graft; Z79.82 Long term (current) use of aspirin; Z79.899 Other long term (current) drug therapy; Z88.1 Allergy status to other antibiotic agents
CPT/HCPCS: 36415; 71045; 80053; 81001; 83735; 84484; 85025; 85379; 93005; 99284; A9270

== ENCOUNTER 2022-04-18 08:17 | Day surgery (SDC) | payer MEDICARE ==
[~2022-04-18 08:17] MED LIST: Lactated Ringers 1,000 ML IV SCH; Sodium Chloride 0.9% 10 ML Syringe FLUSH PRN
[2022-04-18] MEDS ORDERED: Propofol 200 MG/20 ML SDV IV ONE (08:18)
[2022-04-18] MEDS ORDERED: Lidocaine 2% 100 MG/5 ML Syringe IVPUSH ONE (08:18)
[2022-04-18] MEDS ORDERED: Glycopyrrolate 0.2 MG/ML 5 ML MDV IV ONE (08:18)
[2022-04-18 12:20] VITALS: BP 139/79; PULSE 56
== END 2022-04-18 12:07 | disposition home or self-care (01) ==
LOC: FB.SDS 08:17
PROVIDERS: ATTEND Surgery
DX: D12.0 Benign neoplasm of cecum (principal); I10 Essential (primary) hypertension; F41.9 Anxiety disorder, unspecified; I25.10 Atherosclerotic heart disease of native coronary artery without angina pectoris; K21.9 Gastro-esophageal reflux disease without esophagitis; H34.8192 Central retinal vein occlusion, unspecified eye, stable; N28.9 Disorder of kidney and ureter, unspecified; I25.2 Old myocardial infarction; Z79.899 Other long term (current) drug therapy; Z88.1 Allergy status to other antibiotic agents; Z88.6 Allergy status to analgesic agent; Z98.890 Other specified postprocedural states; Z95.1 Presence of aortocoronary bypass graft; Z87.891 Personal history of nicotine dependence
CPT/HCPCS: 00811; 88305; J2704; J3490

== ENCOUNTER 2022-11-26 07:29 | Day surgery (SDC) | payer MEDICARE ==
[2022-11-26] MEDS ORDERED: Sodium Chloride 0.9% 10 ML Syringe FLUSH PRN (07:30)
[2022-11-26] MEDS ORDERED: Midazolam 1 MG/ML 2 ML SDV IV ONE (07:30)
[2022-11-26] MEDS ORDERED: Lactated Ringers 1,000 ML IV PRN (07:30)
[2022-11-26] MEDS ORDERED: fentaNYL 100 MCG/2 ML SDV IV ONE (07:30)
[2022-11-26] MEDS ORDERED: acetaZOLAMIDE 500 MG Cap.ER PO ONE (09:30)
[2022-11-26 13:05] VITALS: BP 167/64; PULSE 60
== END 2022-11-26 10:15 | disposition home or self-care (01) ==
LOC: FB.SDS 07:29
PROVIDERS: ATTEND Ophthalmology
DX: H25.13 Age-related nuclear cataract, bilateral (principal); I10 Essential (primary) hypertension; F41.9 Anxiety disorder, unspecified; I25.10 Atherosclerotic heart disease of native coronary artery without angina pectoris; K21.9 Gastro-esophageal reflux disease without esophagitis; F17.210 Nicotine dependence, cigarettes, uncomplicated; Z95.1 Presence of aortocoronary bypass graft; Z79.899 Other long term (current) drug therapy; Z79.82 Long term (current) use of aspirin; Z88.1 Allergy status to other antibiotic agents; Z88.8 Allergy status to other drugs, medicaments and biological substances
CPT/HCPCS: 00142; 36415; 66984; 84132; A9270; J2250; J3010; J3490; J7120; V2632

== ENCOUNTER 2022-12-10 08:25 | Day surgery (SDC) | payer MEDICARE ==
[2022-12-10] MEDS ORDERED: fentaNYL 100 MCG/2 ML SDV IV ONE (08:26)
[2022-12-10] MEDS ORDERED: Midazolam 1 MG/ML 2 ML SDV IV ONE (08:26)
[2022-12-10] MEDS ORDERED: Sodium Chloride 0.9% 10 ML Syringe FLUSH PRN (08:30)
[2022-12-10] MEDS: Lactated Ringers 1,000 ML IV PRN (09:17)
[2022-12-10] MEDS: acetaZOLAMIDE 500 MG Cap.ER PO ONE (10:52)
[2022-12-10 10:54] VITALS: PULSE 56
[2022-12-10 10:59] VITALS: BP 131/73
== END 2022-12-10 11:11 | disposition home or self-care (01) ==
LOC: FB.SDS 08:25
PROVIDERS: ATTEND Ophthalmology
DX: H25.13 Age-related nuclear cataract, bilateral (principal); F41.9 Anxiety disorder, unspecified; I25.10 Atherosclerotic heart disease of native coronary artery without angina pectoris; K21.9 Gastro-esophageal reflux disease without esophagitis; I10 Essential (primary) hypertension; Z79.82 Long term (current) use of aspirin; Z79.899 Other long term (current) drug therapy; Z88.1 Allergy status to other antibiotic agents; Z88.8 Allergy status to other drugs, medicaments and biological substances; Z95.1 Presence of aortocoronary bypass graft; Z87.891 Personal history of nicotine dependence
CPT/HCPCS: 00142; 99100; A9270-GY; J2250; J3010; J7120; V2632

== ENCOUNTER 2024-10-04 17:36 | Emergency (ER) | payer MEDICARE ==
[2024-10-04] MEDS ORDERED: Sodium Chloride 0.9% 10 ML Syringe FLUSH PRN (17:55)
[2024-10-04 18:22] LABS: BASOPHILS ABSOLUTE AUTO 0.1 x10-3/uL (0.0-0.3); BASOPHILS PERCENT AUTO 0.6 % (0.3-3.8); EOSINOPHILS ABSOLUTE AUTO 0.2 x10-3/uL (0.0-0.6); EOSINOPHILS PERCENT AUTO 1.9 % (0.1-6.8); LYMPHOCYTES ABSOLUTE AUTO 1.4 x10-3/uL (0.5-4.5); LYMPHOCYTES PERCENT AUTO 16.4 % (15.8-45.3); MEAN PLATELET VOLUME 7.4 fL (6.7-11.0); MONOCYTES ABSOLUTE AUTO 0.5 x10-3/uL (0.0-1.2); MONOCYTES PERCENT AUTO 6.2 % (5.5-15.2); NEUTROPHILS ABSOLUTE AUTO 6.6 x10-3/uL (1.7-6.9); NEUTROPHILS PERCENT AUTO 74.9 % (40.3-71.8); PLATELET COUNT,PLT 163 x10(3)uL (117-477); RED BLOOD CELL COUNT 5.19 x10(6)uL (3.90-5.90); RED CELL DISTRIBUTION WIDTH 13.8 % (12.4-15.0); WHITE BLOOD CELL COUNT,WBC 8.7 x10-3/uL (3.2-10.1)
[2024-10-04 19:14] LABS: A/G RATIO 0.5; ALANINE AMINOTRANSFERASE,ALT 17 U/L (12-36); ASPARTATE AMNIOTRANSFERASE,AST 23 IU/L (5-25); BILIRUBIN TOTAL 0.4 mg/dL (0.1-1.3); BLOOD UREA NITROGEN,BUN 26 mg/dL (7-18); CARBON DIOXIDE,CO2 25 mmol/L (21-32); CHLORIDE,CL 109 mmol/L (100-110); CREATININE 1.5 mg/dL (0.70-1.30); EST CRCL DRUG DOSING (CG) 45.27 mL/min; ESTIMATED GFR 48 mL/min (>60); GLUCOSE RANDOM 95 mg/dL (80-116); POTASSIUM,K 5.2 mmol/L (3.5-5.3); PROTEIN TOTAL,TP 4.6 g/dL (6.0-8.0); SODIUM,NA 139 mmol/L (135-145)
[2024-10-04 19:17] LABS: LACTIC ACID 0.5 mmol/L (0.4-2.0)
[2024-10-04 19:23] VITALS: PULSE 71
[2024-10-04 19:40] VITALS: BP 201/85
[2024-10-04] MEDS ORDERED: hydrALAZINE 20 MG/ML SDV IVPUSH ONE (19:40)
[2024-10-04] MEDS: hydrALAZINE 20 MG/ML SDV IVPUSH ONE (19:59)
== END 2024-10-04 21:42 | disposition home or self-care (01) ==
LOC: FB.ED 17:36
DX: M25.561 Pain in right knee (principal); I16.9 Hypertensive crisis, unspecified; I25.2 Old myocardial infarction; I25.10 Atherosclerotic heart disease of native coronary artery without angina pectoris; E78.00 Pure hypercholesterolemia, unspecified; E66.9 Obesity, unspecified; K21.9 Gastro-esophageal reflux disease without esophagitis; J44.9 Chronic obstructive pulmonary disease, unspecified; Z79.899 Other long term (current) drug therapy; Z79.82 Long term (current) use of aspirin; Z88.8 Allergy status to other drugs, medicaments and biological substances; Z87.890 Personal history of sex reassignment; Z68.32 Body mass index [BMI] 32.0-32.9, adult
CPT/HCPCS: 36415; 80053; 83605; 85025; 85379; 96361; 96374; 96375; 99283; 99284; A9270; J0360; J1920; J7030

== ENCOUNTER 2024-11-25 08:12 | Inpatient (IN) | payer MEDICARE ==
[2024-11-25] MEDS ORDERED: Nitroglycerin 0.4 MG Tab.SL SL PRN (13:39)
[2024-11-25] MEDS: TRIAMCINOLONE ACETONIDE NASBOTH SCH (16:03)
[2024-11-25] MEDS: Ipratropium 0.03% Nasal Spray 30 ML Bot NASBOTH PRN (16:03)
[2024-11-26] MEDS: Vitamin B Complex with Vitamin C Tab PO SCH (08:58)
[2024-11-27] MEDS: Albuterol 0.083% 2.5 MG/3 ML Neb Soln INH PRN (09:28)
[2024-11-28] MEDS: POLYETHYLENE GLYCOL EYEBOTH PRN (08:53)
[2024-11-30] MEDS: Ergocalciferol (Vitamin D2) 1.25 MG Cap PO SCH (08:58)
[2024-12-02 06:38] VITALS: PULSE 76
[2024-12-02 09:30] VITALS: BP 159/62
== END 2024-12-02 09:45 | disposition home health service (06) | DRG 947 ==
LOC: FB.MS 12:45
PROVIDERS: ADMIT Family Medicine; ATTEND Family Medicine
DX: R53.1 Weakness (principal); N18.6 End stage renal disease; I12.0 Hypertensive chronic kidney disease with stage 5 chronic kidney disease or end stage renal disease; Z66 Do not resuscitate; H26.9 Unspecified cataract; H40.9 Unspecified glaucoma; J44.9 Chronic obstructive pulmonary disease, unspecified; I25.10 Atherosclerotic heart disease of native coronary artery without angina pectoris; E78.00 Pure hypercholesterolemia, unspecified; H91.90 Unspecified hearing loss, unspecified ear; K21.9 Gastro-esophageal reflux disease without esophagitis; F41.9 Anxiety disorder, unspecified; E66.9 Obesity, unspecified; Z96.659 Presence of unspecified artificial knee joint; I95.1 Orthostatic hypotension; Z85.528 Personal history of other malignant neoplasm of kidney; I25.2 Old myocardial infarction; Z88.1 Allergy status to other antibiotic agents; Z88.8 Allergy status to other drugs, medicaments and biological substances; Z79.899 Other long term (current) drug therapy; Z87.01 Personal history of pneumonia (recurrent); Z79.51 Long term (current) use of inhaled steroids; Z87.442 Personal history of urinary calculi; Z85.51 Personal history of malignant neoplasm of bladder; Z98.49 Cataract extraction status, unspecified eye; Z95.1 Presence of aortocoronary bypass graft; Z98.890 Other specified postprocedural states; Z90.5 Acquired absence of kidney; Z87.891 Personal history of nicotine dependence; Z68.32 Body mass index [BMI] 32.0-32.9, adult
CPT/HCPCS: 94150; 94640; 97110-GP; 97112-GP; 97116-GP; 97161-GP; 97165-GO; 97530-GO; 97530-GP; 97535-GO; 99305; 99308; 99315; A9270-GY; J7512